=== PATIENT | male | born 1970 | race Caucasian/White ===

== ENCOUNTER 2020-10-01 16:18 | Inpatient (IN) | payer MEDICAID, SELFPAY ==
[~2020-10-01] VITALS: Ht 170.2 cm; Wt 81.6 kg
[2020-10-01 16:28] VITALS: BP 108/74
--- NOTE | 2020-10-01 16:36 | NUR ---
49 Y/O M BIBA FROM HOME WITH DAUGHTER, PT HAD SEIZURE AT HOME WITNESSED BY DAUGHTER. DAUGHTER STATES SHE HEARD A WEIRD NOISE AND SAW HER FATHER ON THE FLOOR HAVING A TONIC CLONIC SEIZURE. NO MOUTH INJURIES, NO HEAD INJURIES, NO FACIAL INJURIES. PT IS NOW C/O SOB. DENIES COUGH, CHEST PAIN, FEVERS. SKIN IS JAUNDICED/CLAMMY/DRY; AAOX4; LUNGS CLEAR BL; HR EVEN AND TACHY; PT DENIES ANY FEVER, CP, OR COUGH AT THIS TIME; PATIENT STATES PAIN OF 0/10 AT THIS TIME; VSS; PATIENT POSITIONED FOR COMFORT; HOB ELEVATED; BEDRAILS UP X2; BED DOWN. ER MD MADE AWARE OF PT STATUS. PMH: MCKAY DAILEY
[2020-10-01] MEDS ORDERED: chlordiazePOXIDE 25 MG CAP PO SCH (16:55)
[2020-10-01] MEDS ORDERED: LORazepam 2 MG/ML VIAL IVP ONE (16:55)
[2020-10-01] MEDS ORDERED: NACL 0.9% 500 ML IV ONE ×2 (16:55→18:40)
[2020-10-01] MEDS ORDERED: LORazepam 2 MG/ML VIAL IVP PRN ×2 (17:00→19:55)
[2020-10-01 17:06] LABS: BASOPHILS % (AUTO) 0.3 % (0.0-2.0); EOSINOPHILS # (AUTO) 0.1 K/uL (0-0.4); EOSINOPHILS % (AUTO) 1.1 % (0.0-4.0); HEMATOCRIT 21.7 % (36-52); LYMPHOCYTES # (AUTO) 1.4 K/uL (2.0-11.5); LYMPHOCYTES % (AUTO) 11.8 % (20.5-51.1); MEAN CORPUSCULAR HEMOGLOBIN 20 pg (27-31); MEAN CORPUSCULAR HGB CONC 29 g/dL (33-37); MEAN CORPUSCULAR VOLUME 68.5 fL (80-94); MONOCYTES # (AUTO) 0.8 K/uL (0.8-1.0); MONOCYTES % (AUTO) 6.9 % (1.7-9.3); NEUTROPHILS # (AUTO) 9.3 K/uL (1.8-7.7); NEUTROPHILS % (AUTO) 79.9 % (42.2-75.2); PLATELET COUNT (AUTO) 131 K/uL (140-450); RED BLOOD CELL COUNT(AUTO) 3.17 MIL/uL (4.20-6.10); WHITE BLOOD COUNT (AUTO) 11.7 K/uL (4.8-10.8)
[2020-10-01 17:08] LABS: HEMOGLOBIN 6.3 g/dL (12.0-18.0)
--- NOTE | 2020-10-01 17:10 | NUR ---
PATIENT TAKEN TO CT VIA TORI
[2020-10-01 17:19] LABS: PROTHROMBIN TIME 20.3 secs (10.8-13.4)
[2020-10-01 17:40] LABS: ALBUMIN 2.5 g/dL (3.4-5.0); ANION GAP 13.6 (8-16); CARBON DIOXIDE 25.8 mmol/L (21-32); CREATININE 0.8 mg/dL (0.6-1.3); POTASSIUM 3.4 mmol/L (3.5-5.1); TOTAL BILIRUBIN 7.4 mg/dL (0.0-1.0)
--- NOTE | 2020-10-01 17:52 | NUR ---
PER BLOOD BANK, PRBCS READY FOR PICK-UP.
[2020-10-01] MEDS ORDERED: PANTOPRAZOLE 40 MG INJ VIAL IVP ONE (18:30)
[2020-10-01] MEDS ORDERED: cefTRIAXone 1,000 MG VIAL ONE (18:32)
[2020-10-01] MEDS ORDERED: DEXT 5% / NACL 0.9% 1,000 ML IV ONE (18:45)
--- NOTE | 2020-10-01 19:30 | NUR ---
REPORT RECEIVED FROM MERY ALEXANDER FOR CONTINUITY OF CARE
[2020-10-01] MEDS ORDERED: ZOLPIDEM 5 MG TAB PO PRN (19:50)
[2020-10-01] MEDS ORDERED: HYDROcodone/APAP 7.5/325 MG 1 TAB PO PRN (19:50)
[2020-10-01] MEDS ORDERED: DOCUSATE SODIUM 100 MG GELCAP PO PRN (19:50)
[2020-10-01] MEDS ORDERED: ACETAMINOPHEN 325 MG TAB PO PRN (19:50)
[2020-10-01] MEDS ORDERED: ONDANSETRON 4 MG/2 ML VIAL IM/IVP PRN (19:50)
[2020-10-01] MEDS ORDERED: guaiFENesin DM 200/20 MG-10 ML 10 ML UDC PO PRN (19:50)
[2020-10-01] MEDS ORDERED: POTASSIUM CHLORIDE 10 MEQ TABER PO PRN (19:50)
[2020-10-01] MEDS ORDERED: MULTIVITAMIN-12 10 ML, THIAMINE 100 MG, FOLIC ACID 1 MG, MAGNESIUM SULFATE 50% 2,000 MG... IV SCH ×5 (19:55)
--- NOTE | 2020-10-01 20:39 | NUR ---
Patient will be admitted to care of DR RODRIGUEZ. Admited to TELEMETRY. Will go to room 111A. Belongings list completed. Report to CRISPIN ALEXANDER.
[2020-10-01 20:45] VITALS: BP_SYST 92; BP_SYST 94; BP_DIAS 60
--- NOTE | 2020-10-01 20:45 | NUR ---
RECEIVED PT AAOX 3 TO 4 , NID - O2 SAT WNL , W/ O2 AT 2LPM/ NC . IV SITES INTACT AND PATENT . ADMISSION ASSESSMENT - DONE . WITH ONGOING BT - NO BT REACTION NOTED AT THIS TIME . NPO EXCEPTS MEDS RE EMPHASIZED . SAFETY MEASURES IN PLACE . POC DISCUSSED VERBALIZE UNDERSTANDING ALTHOUGH NEEDS RE INFORCEMENT DUE TO LACK OF INTEREST.ON TELE MONITOR . WILL CONT. TO MONITOR . DENIES ANY PAIN . Addendum: 10/02/20 at 0845 by Concha Troy RN INFORM DR. JENNIFER JACINTO - NOT GIVEN DUE TO NO PHARMACIST ON DUTY . WILL GIVE BETINA - HE SAID OK . Addendum: 10/02/20 at 0851 by Concha Troy RN RECEIVED PT FROM / [facility] [place] W/ ASSIST TO BED .
[2020-10-01 20:48] LABS: CHOL/HDL RATIO 10.3 (1-4.5); FREE T4 (FREE THYROXINE) 1.42 ng/dL (0.76-1.46); MAGNESIUM 1.5 mg/dL (1.8-2.4); PHOSPHORUS 1.5 mg/dL (2.5-4.9); THYROID STIMULATING HORMONE 5.83 uIU/mL (0.34-3.74)
[2020-10-01] MEDS: chlordiazePOXIDE 25 MG CAP PO SCH (22:15)
[2020-10-01] MEDS: DEXT 5% /NACL 0.9% 1,000 ML IV SCH (22:49)
--- NOTE | 2020-10-01 22:49 | NUR ---
D5 NSS 120CC/HR - ORDERED.
[2020-10-02] VITALS: BP_SYST 102; BP_SYST 97; BP_DIAS 58; BP_DIAS 60
--- NOTE | 2020-10-02 | NUR ---
MADE ROUNDS , NO S/SX OD ACUTE DISTRESS NOTED . NO BT RXN NOTED . AT THIS TIME .
--- NOTE | 2020-10-02 00:15 | NUR ---
SECOND BAG OF PRBC - START - WILL CONT . TO MONITOR .
--- NOTE | 2020-10-02 02:00 | NUR ---
MADE ROUNDS , NO S/SX OF ACUTE DISTRESS NOTED - NO BT RXN NOTED . CALL LIGHT WITHIN REACH .
[2020-10-02 04:00] VITALS: BP 90/60
--- NOTE | 2020-10-02 04:00 | NUR ---
MADE ROUNDS , NOM S/X OF ACUTE DISTRESS NOTED . Addendum: 10/02/20 at 0853 by Concha Troy RN RELAYED TO DR. RODRIGUEZ THE RESULT OF SERUM MAG. AND PHOS - WILL - WAIT THE FURTHER ORDER.
[2020-10-02] MEDS: DEXT 5% /NACL 0.9% 1,000 ML IV SCH ×3 (04:10→20:49)
--- NOTE | 2020-10-02 06:00 | NUR ---
NO COMPLAIN MADE .
[2020-10-02 06:11] LABS: ANION GAP 7.2 (8-16); CARBON DIOXIDE 29.3 mmol/L (21-32); CREATININE 0.7 mg/dL (0.6-1.3); POTASSIUM 3.5 mmol/L (3.5-5.1)
[2020-10-02 06:19] LABS: BASOPHILS % (AUTO) 0.4 % (0.0-2.0); EOSINOPHILS # (AUTO) 0.2 K/uL (0-0.4); EOSINOPHILS % (AUTO) 2.3 % (0.0-4.0); HEMATOCRIT 22.6 % (36-52); LYMPHOCYTES % (AUTO) 22.5 % (20.5-51.1); MEAN CORPUSCULAR HEMOGLOBIN 21 pg (27-31); MEAN CORPUSCULAR HGB CONC 30 g/dL (33-37); MONOCYTES # (AUTO) 0.5 K/uL (0.8-1.0); MONOCYTES % (AUTO) 5.5 % (1.7-9.3); NEUTROPHILS # (AUTO) 6.2 K/uL (1.8-7.7); NEUTROPHILS % (AUTO) 69.3 % (42.2-75.2); RED BLOOD CELL COUNT(AUTO) 3.22 MIL/uL (4.20-6.10); RED CELL DISTRIBUTION WIDTH 25.6 % (11.6-13.7)
[2020-10-02 06:25] LABS: HEMOGLOBIN 6.8 g/dL (12.0-18.0); PLATELET COUNT (AUTO) 108 K/uL (140-450)
--- NOTE | 2020-10-02 07:00 | NUR ---
RELEYED TO DR. RODRIGUEZ RPT HGB . HCT - PER DR. RODRIGUEZ ANOTHER 2 PRBC. -
--- NOTE | 2020-10-02 07:30 | NUR ---
ENDORSED - PT - STABLE .
--- NOTE | 2020-10-02 07:30 | NUR ---
RECEIVED REPORT FROM NIGHT NURSE PATIENT IS AAOX3-4 ON 2LPM OXYGEN VIA NC, NPO EXCEPT MEDS HAD A 1X BOWEL MOVEMENT SKIN INTACT, IV INTACT ON LEFT AC AND RIGHT HAND, S/P 2 UNITS PRBC ON 10/01 20 AND FOR URINE COLLECTION, BANANA BAG UNABLE TO GIVE PER WALLPAPER PRINTER HELPER NURSE DR RODRIGUEZ AWARE. K DUR 40 MEQ GIVEN. SAFETY MEASURES IN PLACE AND CALL LIGHT WITHIN REACH. WILL CONTINUE TO MONITOR.
[2020-10-02 08:00] VITALS: BP 102/67
[2020-10-02] MEDS: FOLIC ACID 1 MG TAB PO SCH (08:26)
[2020-10-02] MEDS: PANTOPRAZOLE 40 MG TABEC PO SCH (08:27)
[2020-10-02] MEDS: MULTIVITAMIN 1 TAB PO SCH (08:27)
[2020-10-02] MEDS: chlordiazePOXIDE 25 MG CAP PO SCH ×3 (08:27→17:25)
[2020-10-02] MEDS: THIAMINE 100 MG TAB PO SCH (08:28)
--- NOTE | 2020-10-02 08:38 | NUR ---
MEDICATION DUE GIVEN PT IS AWAKE CHECK VITAL SIGNS PRIOR TO MEDICATION BP 102/67 IL 88. NO DISTRESS NOTED.WILL CONTINUE TO MONITOR.
--- NOTE | 2020-10-02 08:59 | NUR ---
PATIENT HAS BEEN SCREENED AND CATEGORIZED HIGH NUTRITION RISK. PATIENT WILL BE SEEN WITHIN 1-2 DAYS OF ADMISSION. 10/02/20-10/03/[address]
--- NOTE | 2020-10-02 10:00 | NUR ---
BLOOD TRANSFUSION STARTED CHECK VITAL SIGNS BP 104/67 MN 81 RR 18 TEMP 98.5 OXYGEN SATURATION 99% PT IS STABLE.
--- NOTE | 2020-10-02 10:45 | NUR ---
PATIENT STARTED ON EEG TEST PT IS STABLE AND ON GOING BLOOD TRANSFUSION.
[2020-10-02 12:00] VITALS: BP 107/74
--- NOTE | 2020-10-02 12:15 | NUR ---
PATIENT SIGNED CONSENT FOR EGD DR GRADY EXPLAINED THE PROCEDURE AT THE BEDSIDE AND ABLE TO ANSWER QUESTIONS PATIENT VERBALIZES UNDERSTANDING.
[2020-10-02] MEDS ORDERED: PHYTONADIONE 10 MG/ML AMP IV ONE (12:20)
--- NOTE | 2020-10-02 12:30 | NUR ---
PATIENT OUT IN HIS ROOM FOR EGD UNDER DR GRADY.
--- NOTE | 2020-10-02 12:31 | NUR ---
SOCIAL WORK NOTE: Patient's Orientation Unable To Assess Information Provided By LYLE ANDREW - DAUGHTER Comments SW WAS UNABLE TO MEET PATIENT AT BEDSIDE. SW COMPLETED ASSESSMENT WITH PATIENT'S DAUGHTER. Tree Thinner, Realtionship and Phone Number LYLE ANDREW DAUGHTER [phone] [facility] [place] Power of Computer Software Engineer No Does Patient Have a POLST No Identifying Problems No Social Work Triggers Is A Social Work Consult Needed No Mandate Report Filed No Explanation Of Identifying Problems PATIENT IS A 49-YEAR-OLD MALE ADMITTED FOR ALCOHOL WITHDRAWAL AND SEIZURE. PATIENT HAS PMHX OF ALCOHOL ABUSE. SW PROVIDED SUBSTANCE ABUSE RESOURCES. Admitted From Home Pre-Admission Level Of Functioning Status Independent/Ambulatory Prior Resources/Services Used In Last 12 Months No Prior Resources Used Prior DME No Prior DME Used Dialysis Comments N/A Living Situation Lives With Family House Patient Had Caregiver No Home Support No Caregiver Issues Financial Issues No Known Financial Issue Referral To The Financial Counselor Needed No Discharge Plan Comments TENTATIVE DISCHARGE PLAN IS FOR PATIENT TO RETURN HOME. DC Plan Status Initiated
[2020-10-02] MEDS ORDERED: diphenhydrAMINE 50 MG/ML VIAL ONE (12:44)
[2020-10-02] MEDS ORDERED: MIDAZOLAM 5 MG/5 ML VIAL ONE (12:44)
[2020-10-02] MEDS ORDERED: fentaNYL citrate 0.05 MG/ML VIAL ONE (12:44)
[2020-10-02] MEDS ORDERED: OCTREOTIDE ACETATE 100 MCG/ML VIAL SUBQ SCH (13:00)
[2020-10-02] MEDS ORDERED: PHYTONADIONE 10 MG in NACL 0.9% 50 ML IV SCH (13:00)
--- NOTE | 2020-10-02 13:00 | NUR ---
PATIENT BACK IN HIS ROOM PT S/P EGD PT IS STABLE.
--- NOTE | 2020-10-02 13:25 | NUR ---
BLOOD TRANSFUSION COMPLETE NO TRANSFUSION REACTION BP 107/74 NH 86. PT IS STABLE
--- NOTE | 2020-10-02 13:39 | NUR ---
DC PLANNIN YRS OLD MALE PATIENT WAS ADMITTED FROM HOME WITH A DX OF ALCOHOL WITHDRAWAL , SEIZURES ANEMIA GI BLEED AND NEW ONSET OF CIRRHOSIS. PT HAS A HX OF ALCOHOL ABUSE AND GI BLEED. CXR SHOWED MILD PATCHY BIBASAL OPACITIES WHICH MAY REPRESENT ATELECTASIS OR PNEUMONIA . HEAD CT NO ACUTE INTRACRANIAL HEMORRHAGE , MASS EFFECT. RAPID COVID TEST NEGATIVE PCR IS PENDING. H/H 6.8/22.6 AFTER TRANSFUSED OF 2 UNITS PRBC. ADMINISTERED IVF, BANANA BAG AND CONTINUED HOME MEDS. CONSULTED WITH NEUROLOGIST AND GI. SS TO EVALUATE FOR ALCOHOL ABUSE. DC PLAN TO GO HOME WHEN STABLE. CM TO FOLLOW.
[2020-10-02] MEDS ORDERED: MIDAZOLAM 2 MG/2 ML VIAL IVP ONE (13:50)
[2020-10-02] MEDS ORDERED: fentaNYL citrate 0.05 MG/ML VIAL IVP ONE (13:50)
--- NOTE | 2020-10-02 14:27 | NUR ---
10/02/20 RD INITIAL ASSESSMENT COMPLETED PLEASE REFER TO NUTRITION ASSESSMENT UNDER CARE ACTIVITY FOR ESTIMATED NUTRITIONAL NEEDS. 1. CONTINUE FULL LIQUID DIET TOLERATED 2. ADVANCE TO REGULAR DIET 3. RD TO FOLLOW-UP 3-5 DAYS, MODERATE RISK SARAH NAYLOR RD
--- NOTE | 2020-10-02 15:00 | NUR ---
MEDICATION DUE GIVEN PT COMPLAINS OF ABDOMINAL PAIN PAIN MEDICATION GIVEN
[2020-10-02] MEDS: SODIUM FERRIC GLUCONATE 125 MG in NACL 0.9% 100 ML IV SCH (15:11)
[2020-10-02 16:00] VITALS: BP 108/70
--- NOTE | 2020-10-02 17:28 | NUR ---
MEDICATION DUE GIVEN AND PATIENT HAD NO URINE OUT PUT FOR THE SHIFT AND NO DIARRHEA NOTED.
--- NOTE | 2020-10-02 19:41 | NUR ---
ENDORSED TO CARPENTRY SUPERVISOR FOR CONTINUITY OF CARE. PT STABLE
[2020-10-02 20:00] VITALS: BP 100/71
--- NOTE | 2020-10-02 20:00 | NUR ---
RECEIVED BEDSIDE REPORT FROM DAY RN REGARDING THE PT FOR CONTINUITY OF CARE. PATIENT A/A/OX3, FORGETFUL AT TIMES. PT LAYING IN BED TALKING TO HIS FAMILY OVER THE PHONE WHO ARE STANDING BY THE WINDOW. PT NOT ANY DISTRESS AND NO COMPLAIN AT THIS TIME. IVF INFUSING ORDERED. VITAL SIGNS STABLE, AFEBRILE, SATING 93% ON 2L/NC. SR ON DATABASE CONSULTANT, HR-93. FALL PRECAUTION IMPLEMENTED. INSTRUCTED THE PT NOT TO GET OUT OF [place] ON HIS OWN AND EDUCATED ON HOW TO USE THE CALL LIGHT. BED IN LOW POSITION,SIDE RAILS UP X2 AND BED ALARM ON. PT VERBALIZED UNDERSTANDING WITH THE PLAN OF CARE.CALL LIGHT WITHIN REACH. WILL CONTINUE MONITORING AND POC.
[2020-10-02] MEDS: LACTULOSE 20 GM/30 ML UDC PO SCH (20:46)
--- NOTE | 2020-10-02 22:45 | NUR ---
STARTED THE 2ND UNIT OF BLOOD ORDERED. WILL MONITOR THE PATIENT FOR ANY TRANSFUSION REACTION. CALL LIGHT WITHIN REACH.
--- NOTE | 2020-10-02 23:45 | NUR ---
BLOOD TRANSFUSION STILL ONGOING. NO COMPLAIN FROM THE PATIENT AT THIS TIME AFTER 1 HOUR OF TRANSFUSION. WILL CONTINUE TO OBSERVE.
[2020-10-03] VITALS: BP 107/77
--- NOTE | 2020-10-03 02:05 | NUR ---
BLOOD TRANSFUSION DONE. NO TRANSFUSION REACTION NOTED. NO COMPLAIN FROM THE PATIENT. VSS, AFEBRILE, SATING 95% ON 2L/NC. CALL LIGHT WITHIN REACH.
--- NOTE | 2020-10-03 03:29 | NUR ---
PATIENT HAS 2 WATERY DIARRHEA NOW. NO BLOOD NOTED ON THE STOOL. WILL CONTINUE TO OBSERVE.
[2020-10-03 04:00] VITALS: BP 110/77
--- NOTE | 2020-10-03 04:30 | NUR ---
PATIENT VSS, AFEBRILE, SATING 95% ON 2L/NC . SR ON PROJECT GEOLOGIST, HR-81. WILL CONTINUE TO OBSERVE.
[2020-10-03] MEDS: DEXT 5% /NACL 0.9% 1,000 ML IV SCH ×2 (05:10→14:35)
[2020-10-03 06:36] LABS: BASOPHILS # (AUTO) 0.1 K/uL (0.00-0.22); BASOPHILS % (AUTO) 0.6 % (0.0-2.0); EOSINOPHILS # (AUTO) 0.3 K/uL (0-0.4); EOSINOPHILS % (AUTO) 3.5 % (0.0-4.0); HEMATOCRIT 28.8 % (36-52); LYMPHOCYTES # (AUTO) 1.1 K/uL (2.0-11.5); LYMPHOCYTES % (AUTO) 11.5 % (20.5-51.1); MEAN CORPUSCULAR HEMOGLOBIN 23 pg (27-31); MEAN CORPUSCULAR HGB CONC 31 g/dL (33-37); MEAN CORPUSCULAR VOLUME 75.1 fL (80-94); MONOCYTES # (AUTO) 0.8 K/uL (0.8-1.0); MONOCYTES % (AUTO) 7.9 % (1.7-9.3); NEUTROPHILS # (AUTO) 7.3 K/uL (1.8-7.7); NEUTROPHILS % (AUTO) 76.5 % (42.2-75.2); PLATELET COUNT (AUTO) 109 K/uL (140-450); RED BLOOD CELL COUNT(AUTO) 3.84 MIL/uL (4.20-6.10); RED CELL DISTRIBUTION WIDTH 25.6 % (11.6-13.7); WHITE BLOOD COUNT (AUTO) 9.5 K/uL (4.8-10.8)
--- NOTE | 2020-10-03 06:55 | NUR ---
PATIENT STABLE AT THIS TIME. NOT IN ANY DISTRESS. NO COMPLAIN AT THIS TIME. ALL NEEDS ATTENDED. CALL LIGHT WITHIN REACH. WILL ENDORSE THE PATIENT TO THE ONCOMING RN FOR CONTINUITY OF CARE.
[2020-10-03 07:01] LABS: ANION GAP 7.9 (8-16); CARBON DIOXIDE 28.7 mmol/L (21-32); CREATININE 0.7 mg/dL (0.6-1.3); POTASSIUM 3.6 mmol/L (3.5-5.1)
[2020-10-03 07:08] LABS: T4 (THYROXINE) 5.9 ug/dL (4.5-12.0)
--- NOTE | 2020-10-03 07:15 | NUR ---
PT RECEIVED FROM SHIP PILOT RN. PT RESTING IN BED EYES CLOSED NO S/S OF DISTRESS. IV IS DRY CLEAN AND INTACT. CALL LIGHT IS WITHIN REACH ALL SAFETY MEASURES ARE IN PLACE.
--- NOTE | 2020-10-03 07:36 | NUR ---
PATIENT STABLE. ENDORSED PATIENT TO DAY RN HERMINIA FOR CONTINUITY OF CARE. SIGNING OFF.
[2020-10-03 08:00] VITALS: BP 103/71
[2020-10-03] MEDS: LACTULOSE 20 GM/30 ML UDC PO SCH (09:15)
[2020-10-03] MEDS: MULTIVITAMIN 1 TAB PO SCH (09:15)
[2020-10-03] MEDS: chlordiazePOXIDE 25 MG CAP PO SCH ×3 (09:16→17:38)
[2020-10-03] MEDS: FOLIC ACID 1 MG TAB PO SCH (09:16)
[2020-10-03] MEDS: THIAMINE 100 MG TAB PO SCH (09:16)
[2020-10-03] MEDS: PANTOPRAZOLE 40 MG TABEC PO SCH (09:16)
--- NOTE | 2020-10-03 09:19 | NUR ---
MEDICATIONS GIVEN PER MD ORDER. PT EDUCATED. PT VERBALIZED UNDERSTANDING.PT TOLERATED WELL. NO S/S OF DISTRESS. PT RESTING IN BED. ABLE TO MAKE NEEDS KNOWN. ALL SAFETY MEASURES IN PLACE. CALL LIGHT WITHIN REACH
--- NOTE | 2020-10-03 09:59 | NUR ---
FRENCH BINDER AT BEDSIDE.
--- NOTE | 2020-10-03 11:22 | NUR ---
PT AMBULATED TO RESTROOM. YELLOW CONTINUOUS DIARRHEA. PT UNABLE TO HOLD UNTIL GETTING TO TOILET. PT TOLERATED WELL. BATH WIPES NEW GOWN , NEW LINEN PROVIDED.
--- NOTE | 2020-10-03 11:51 | NUR ---
PT ASSISTED WITH PHONE. PT TALKING TO DAUGHTER. PT IN BED NO S/S OF DISTRESS.. IV IS DRY CLEAN AND INTACT. CALL LIGHT IS WITHIN REACH ALL SAFETY MEASURES ARE IN PLACE.
--- NOTE | 2020-10-03 12:42 | NUR ---
MEDICATIONS GIVEN PER MD ORDER. PT EDUCATED. PT VERBALIZED UNDERSTANDING.PT TOLERATED WELL. NO S/S OF DISTRESS. FRANKLIN;L LIGHT IS WITHIN REACH.
--- NOTE | 2020-10-03 12:42 | NUR ---
PT AMBULATING TO INDEPENDENTLY . PT TOLERATED WELL. TOOTHBRUSH AND TOOTHPASTE PROVIDED.
--- NOTE | 2020-10-03 12:48 | NUR ---
PT PROVIDED NON SLIP SOCKS, EDUCATED ON IMPORTANCE OF NOT WALKING BAREFOOT. VERBALIZED UNDERSTANDING
--- NOTE | 2020-10-03 14:38 | NUR ---
PT IN BED ON SIDE. EYES CLOSED. EASY TO AROUSE. MEDICATIONS GIVEN PER MD ORDER. PT EDUCATED. PT VERBALIZED UNDERSTANDING.PT TOLERATED WELL. NO S/S OF DISTRESS.
[2020-10-03] MEDS: SODIUM FERRIC GLUCONATE 125 MG in NACL 0.9% 100 ML IV SCH (14:39)
[2020-10-03 16:00] VITALS: BP 101/70
--- NOTE | 2020-10-03 16:34 | NUR ---
PT RESTING IN BED EYES CLOSED. EASY TO AROUSE. THEN APPLE JUICE PROVIDED PER PT REQUEST. NO S/S OF DISTRESS. ALL SAFETY MEASURES ARE IN PLACE. PT WENT BACK TO SLEEP , BREATHING IS SYMMETRICAL UNLABORED AND NO USE OF ACCESSORY MUSCLES.
--- NOTE | 2020-10-03 17:35 | NUR ---
MEDICATIONS GIVEN PER MD ORDER. PT EDUCATED. PT VERBALIZED UNDERSTANDING.PT TOLERATED WELL. NO S/S OF DISTRESS. ALL SAFETY MEASURES ARE IN PLACE.
--- NOTE | 2020-10-03 19:25 | NUR ---
PT ENDORSED TO PHYSICIAN PRACTICE COORDINATOR RN FOR CONTINUITY OF CARE.
--- NOTE | 2020-10-03 19:26 | NUR ---
RECEIVED REPORT FROM KATHI HOPE. PT AOX4 ON 2L N/C. RESPIRATIONS EVEN UNLABORED. NO S/S RESPIRATORY DISTRESS. NO C/O PAIN AT THIS TIME. IV SITE LFA PATENT INTACT INFUSING IVF ORDERED. SAFETY MEASURES IN PLACE. CALL LIGHT WITHIN REACH. WILL CONTINUE TO MONITOR
[2020-10-03 20:00] VITALS: BP 104/70
--- NOTE | 2020-10-03 20:30 | NUR ---
PATIENT RESTING IN BED. DENIES DISCOMFORT, DENIES PAIN. NO S/S ACUTE DISTRESS NOTED. BED IN LOW POSITION. CALL LIGHT WITHIN REACH. WILL CONTINUE TO MONITOR
--- NOTE | 2020-10-03 22:45 | NUR ---
PATIENT RESTING IN BED. RESPIRATIONS EVEN UNLABORED. NO DISTRESS NOTED. CALL LIGHT WITHIN REACH. WILL CONTINUE TO MONITOR
--- NOTE | 2020-10-04 01:30 | NUR ---
PATIENT ASLEEP IN BED. NO S/S ACUTE DISTRESS NOTED. CALL LIGHT WITHIN REACH. WILL CONTINUE TO MONITOR
[2020-10-04] MEDS: DEXT 5% /NACL 0.9% 1,000 ML IV SCH (02:43)
--- NOTE | 2020-10-04 02:43 | NUR ---
ADMINISTERED IVF ORDERED. PATIENT DENIES PAIN, DENIES DISCOMFORT. NO DISTRESS NOTED. CALL LIGHT WITHIN REACH. WILL CONTINUE TO MONITOR
[2020-10-04 04:00] VITALS: BP 102/70
[2020-10-04 06:38] LABS: BASOPHILS # (AUTO) 0.1 K/uL (0.00-0.22); BASOPHILS % (AUTO) 0.8 % (0.0-2.0); EOSINOPHILS # (AUTO) 0.3 K/uL (0-0.4); HEMATOCRIT 27.9 % (36-52); HEMOGLOBIN 8.8 g/dL (12.0-18.0); LYMPHOCYTES # (AUTO) 0.6 K/uL (2.0-11.5); LYMPHOCYTES % (AUTO) 6.5 % (20.5-51.1); MEAN CORPUSCULAR HEMOGLOBIN 24 pg (27-31); MEAN CORPUSCULAR HGB CONC 32 g/dL (33-37); MEAN CORPUSCULAR VOLUME 74.8 fL (80-94); MONOCYTES % (AUTO) 11.8 % (1.7-9.3); NEUTROPHILS # (AUTO) 6.7 K/uL (1.8-7.7); NEUTROPHILS % (AUTO) 77.9 % (42.2-75.2); PLATELET COUNT (AUTO) 99 K/uL (140-450); RED BLOOD CELL COUNT(AUTO) 3.73 MIL/uL (4.20-6.10); RED CELL DISTRIBUTION WIDTH 26.5 % (11.6-13.7); WHITE BLOOD COUNT (AUTO) 8.6 K/uL (4.8-10.8)
[2020-10-04 07:24] LABS: ANION GAP 7.2 (8-16); CREATININE 0.7 mg/dL (0.6-1.3); POTASSIUM 3.2 mmol/L (3.5-5.1)
--- NOTE | 2020-10-04 07:39 | NUR ---
ENDORSED PATIENT TO DAY RN FOR CONTINUITY OF CARE. PATIENT IS IN STABLE CONDITION
--- NOTE | 2020-10-04 07:39 | NUR ---
NURSE REPORT REPORT OBTAINED FROM NIGHT NURSE ADDIE THIS NURSE ASSUMED CARE OF PATIENT. RECEIVED PATIENT AWAKE AT BEGINNING OF DAYSHIFT. NO C/O PAIN OR DISCOMFORT. IV INFUSING ORDERED. VSS.
[2020-10-04 08:00] VITALS: BP 108/73
[2020-10-04] MEDS ORDERED: LACTULOSE 20 GM/30 ML UDC PO SCH (09:00)
[2020-10-04] MEDS: chlordiazePOXIDE 25 MG CAP PO SCH (09:52)
[2020-10-04] MEDS: PANTOPRAZOLE 40 MG TABEC PO SCH (09:52)
[2020-10-04] MEDS: MULTIVITAMIN 1 TAB PO SCH (09:53)
[2020-10-04] MEDS: THIAMINE 100 MG TAB PO SCH (09:53)
[2020-10-04] MEDS: FOLIC ACID 1 MG TAB PO SCH (09:53)
[2020-10-04] MEDS ORDERED: LACT10SO11 PO (12:04)
[2020-10-04] MEDS ORDERED: FOLI1TAB90 PO (12:04)
[2020-10-04] MEDS ORDERED: THIA-34 PO (12:04)
[2020-10-04] MEDS ORDERED: LIB25 PO (12:16)
--- NOTE | 2020-10-04 13:00 | NUR ---
NURSE CARE MEDICATIONS GIVEN ORDERED. NO C/O PAIN OR DISCOMFORT. HAD 4-5 STOOLS DURING THE DAYSHIFT. LACTULOSE REFUSED.
[2020-10-04 16:00] VITALS: BP 105/76
[2020-10-04 16:47] VITALS: BP 105/76
--- NOTE | 2020-10-04 17:30 | NUR ---
DISCHARGE INSTRUCTIONS D/C INSTRUCTIONS GIVEN TO PATIENT AND THEN TO FAMILY. VERBALIZED UNDERSTANDINGS. MITRA DC'D. DC'D VIA W/C AND OUT TO CAR WITH AND DAUGHTER. RX FOR LIBRIUM GIVEN TO TO OBTAIN MED FROM PHARMACY.
== END 2020-10-04 17:24 | disposition home or self-care (01) | DRG 242 ==
LOC: MED 16:18 → MTU 18:46
PROVIDERS: ADMIT Family Medicine; ATTEND Family Medicine
PROC: 30233N1 Transfusion of Nonautologous Red Blood Cells into Peripheral Vein, Percutaneous Approach (ICD-10-PCS; 2020-10-01)
PROC: 4A10X4Z Monitoring of Central Nervous Electrical Activity, External Approach (ICD-10-PCS; 2020-10-02)
PROC: 06L38CZ Occlusion of Esophageal Vein with Extraluminal Device, Via Natural or Artificial Opening Endoscopic (ICD-10-PCS; principal; 2020-10-02 12:15)
DX: I85.11 Secondary esophageal varices with bleeding (principal); J96.01 Acute respiratory failure with hypoxia; E43 Unspecified severe protein-calorie malnutrition; F10.231 Alcohol dependence with withdrawal delirium; D69.6 Thrombocytopenia, unspecified; E87.2 Acidosis; E83.39 Other disorders of phosphorus metabolism; E83.42 Hypomagnesemia; K74.60 Unspecified cirrhosis of liver; G40.909 Epilepsy, unspecified, not intractable, without status epilepticus; E87.1 Hypo-osmolality and hyponatremia; E87.6 Hypokalemia; R74.01 Elevation of levels of liver transaminase levels; E78.5 Hyperlipidemia, unspecified; E03.8 Other specified hypothyroidism; D50.9 Iron deficiency anemia, unspecified; Z20.822 Contact with and (suspected) exposure to COVID-19; Z87.11 Personal history of peptic ulcer disease; Z68.28 Body mass index [BMI] 28.0-28.9, adult
CPT/HCPCS: 36415; 36430; 70450; 71045; 76700; 80048; 80053; 82140; 82150; 83036; 83605; 83690; 83735; 83880; 84100; 84436; 84439; 84443; 84479; 84484; 85025; 85610; 86886; 86900; 86901; 86920; 87040; 87081; 93005; 96361; 96365; 96375; 99291; A9153; C9113; G0482; J0696; J1200; J2060; J2250; J2354; J2916; J3010; J3411; J3430; J3475; J3490; J7030; J7060; P9016; U0003

== ENCOUNTER 2020-10-05 20:06 | Inpatient (IN) | payer MEDICAID, SELFPAY ==
[~2020-10-05] VITALS: Ht 170.2 cm; Wt 80.7 kg
--- NOTE | 2020-10-05 19:15 | NUR ---
RECEIVED REPORT FROM DAY CHARGE NURSE CLARE. PATIENT DIRECT ADMIT FROM [facility]. PATIENT AOX4 ON ROOM AIR. CC: BLOODY STOOLS DX: GI BLEED HX: ALCOHOL WITHDRAWAL, ABD DISTENTION, HEMORRHOIDS. IV SITE RAC 20G, JAUNDICED, ECCHYMOSIS ON ARMS. AMBULATORY WITH ASSIST. LATEST VS: BP 112/87 TEMP 97.7 HR 95 RR 20 O2 SAT 93-96%. LIBRIUM GIVEN AT 1900 10/05/20. WILL GET THE ROOM READY
[2020-10-05 19:45] VITALS: BP 97/72
--- NOTE | 2020-10-05 19:45 | NUR ---
PATIENT ARRIVED TO UNIT. AOX4 ON ROOM AIR. DENIES SOB, DENIES PAIN. NO S/S RESPIRATORY DISTRESS. IV SITE RAC 20G PATENT INTACT, S.L. BRUISES ON RIGHT HAND, SKIN WARM DRY INTACT, JAUNDICE. BOWELS ACTIVE. LUNGS CLEAR. ORIENTED TO ROOM AND HOSPITAL. SAFETY MEASURES IN PLACE. CALL LIGHT WITHIN REACH. WILL CONTINUE TO MONITOR
[~2020-10-05 20:06] MED LIST: FOLI1TAB90 PO; LACT10SO11 PO; LIB25 PO; THIA-34 PO
--- NOTE | 2020-10-05 20:45 | NUR ---
CALLED RAHEEM SUBRAMANIAN. UPDATED ON PATIENT STATUS. NEW ORDERS RECEIVED. WILL CARRY OUT.
--- NOTE | 2020-10-05 20:50 | NUR ---
PLACED PATIENT ON TELE. NO DISTRESS NOTED. NO C/O PAIN AT THIS TIME. CALL LIGHT WITHIN REACH. WILL CONTINUE TO MONITOR
[2020-10-05] MEDS ORDERED: ONDANSETRON 4 MG/2 ML VIAL IVP PRN (21:00)
--- NOTE | 2020-10-05 22:15 | NUR ---
CLEANED CHANGED REPOSITIONED PATIENT. HAD SMALL BLOODY SMEAR BOWEL MOVEMENT. NO S/S ACUTE DISTRESS NOTED. CALL LIGHT WITHIN REACH. WILL CONTINUE TO MONITOR
[2020-10-05] MEDS ORDERED: ONDANSETRON 4 MG/2 ML VIAL IM/IVP PRN (23:15)
[2020-10-05] MEDS ORDERED: MAG SULF 2000 MG/WATER PREMIX 50 ML IV PRN (23:15)
[2020-10-05] MEDS ORDERED: DOCUSATE SODIUM 100 MG GELCAP PO PRN (23:15)
[2020-10-05] MEDS ORDERED: SODIUM PHOS / POTASSIUM PHOS 1 PKT PDR PO PRN (23:15)
[2020-10-05] MEDS ORDERED: KETOROLAC 15 MG/ML VIAL IVP PRN (23:15)
[2020-10-05] MEDS ORDERED: MORPHINE SULFATE 2 MG/ML SYR IVP PRN (23:15)
[2020-10-05] MEDS ORDERED: POTASSIUM CHLORIDE 40 MEQ, LIDOCAINE MPF 1% 25 MG in NACL 0.9% 250 ML IV PRN (23:15)
[2020-10-06] VITALS: BP 97/68
--- NOTE | 2020-10-06 00:15 | NUR ---
PATIENT ASLEEP IN BED. RESPIRATIONS EVEN UNLABORED. NO DISTRESS NOTED. CALL LIGHT WITHIN REACH. WILL CONTINUE TO MONITOR
--- NOTE | 2020-10-06 02:03 | NUR ---
PATIENT SLEEPING IN BED COMFORTABLY. NO S/S RESPIRATORY DISTRESS. CALL LIGHT WITHIN REACH. WILL CONTINUE TO MONITOR
[2020-10-06 04:00] VITALS: BP 105/70
--- NOTE | 2020-10-06 04:12 | NUR ---
PATIENT SLEEPING IN BED. NO S/S RESPIRATORY DISTRESS. CALL LIGHT WITHIN REACH. WILL CONTINUE TO MONITOR
--- NOTE | 2020-10-06 06:06 | NUR ---
PATIENT RESTING IN BED. DENIES DISCOMFORT, DENIES PAIN. NO S/S ACUTE DISTRESS NOTED. CALL LIGHT WITHIN REACH. WILL CONTINUE TO MONITOR
[2020-10-06 06:34] LABS: ANION GAP 10.9 (8-16); CARBON DIOXIDE 25.8 mmol/L (21-32); CREATININE 0.7 mg/dL (0.6-1.3); POTASSIUM 3.7 mmol/L (3.5-5.1)
[2020-10-06 06:47] LABS: BASOPHILS # (AUTO) 0.1 K/uL (0.00-0.22); BASOPHILS % (AUTO) 1.1 % (0.0-2.0); EOSINOPHILS # (AUTO) 0.2 K/uL (0-0.4); HEMATOCRIT 29.8 % (36-52); HEMOGLOBIN 9.2 g/dL (12.0-18.0); LYMPHOCYTES # (AUTO) 1.5 K/uL (2.0-11.5); LYMPHOCYTES % (AUTO) 19.3 % (20.5-51.1); MEAN CORPUSCULAR HEMOGLOBIN 24 pg (27-31); MEAN CORPUSCULAR HGB CONC 31 g/dL (33-37); MEAN CORPUSCULAR VOLUME 77.5 fL (80-94); MONOCYTES % (AUTO) 12.2 % (1.7-9.3); NEUTROPHILS # (AUTO) 5.1 K/uL (1.8-7.7); NEUTROPHILS % (AUTO) 65.4 % (42.2-75.2); RED BLOOD CELL COUNT(AUTO) 3.85 MIL/uL (4.20-6.10); WHITE BLOOD COUNT (AUTO) 7.8 K/uL (4.8-10.8)
[2020-10-06 06:56] LABS: PLATELET COUNT (AUTO) 115 K/uL (140-450)
--- NOTE | 2020-10-06 07:23 | NUR ---
ENDORSED PATIENT TO DAY RN FOR CONTINUITY OF CARE. PATIENT IS IN STABLE CONDITION
--- NOTE | 2020-10-06 07:30 | NUR ---
PT REPORT RECEIVED FROM WELDING MACHINE OPERATOR HELPER ARC RN. PT RESTING IN BED EYES CLOSED. EASY TO AROUSE. NO S/S OF DISTRESS AT THIS TIME. PT ABLE TO MAKE NEEDS KNOWN ALL SAFETY MEASURES ARE IN PLACE. CALL LIGHT IS WITHIN REACH
[2020-10-06 08:00] VITALS: BP 139/69
--- NOTE | 2020-10-06 10:07 | NUR ---
PATIENT HAS BEEN SCREENED AND CATEGORIZED HIGH NUTRITION RISK. PATIENT WILL BE SEEN WITHIN 1-2 DAYS OF ADMISSION. 10/06/20-10/07/20 REFERRAL RECEIVED FOR DIARRHEA >[address]
--- NOTE | 2020-10-06 10:09 | NUR ---
PT COMPLAINS OF WEAKNESS, AND INABILITY TO WALK BECAUSE OF PAIN. PRN WILL BE GIVEN PER MD ORDER.
[2020-10-06 12:00] VITALS: BP 101/75
--- NOTE | 2020-10-06 12:15 | NUR ---
MD AT BEDSIDE EDUCATING PT REGARDING BOWEL PRE, AND COLONOSCOPY PROCEDURE. PT VERBALIZED UNDERSTANDING.
[2020-10-06] MEDS: PROPRANOLOL 20 MG TAB PO SCH ×2 (13:00→17:01)
--- NOTE | 2020-10-06 13:20 | NUR ---
REPORT GIVEN TO ALVERTO BECKMAN RN VERBALIZED UNDERSTANDING FOR CONTINUITY OF CARE. Addendum: 10/06/20 at 1354 by Celia Maurice RN RN MARYLOU PT.
--- NOTE | 2020-10-06 13:42 | NUR ---
PT IN BED RESTING EATING PUDDING. Addendum: 10/06/20 at 1355 by Celia Maurice RN RN WRONG PT
[2020-10-06] MEDS: POLYETHYLENE GLYCOL 17 GM/PKT PO SCH ×2 (13:50→16:59)
[2020-10-06] MEDS: LACTULOSE 20 GM/30 ML UDC PO SCH ×3 (13:50→21:05)
--- NOTE | 2020-10-06 13:54 | NUR ---
MEDICATION GIVEN PER MD ORDER. PT EDUCATED AND VERBALIZED UNDERSTANDING. PT ABLE TO MAKE NEEDS KNOWN. DENIES PAIN AT THIS TIME. NO S/S OF DISTRESS. CALL LIGHT IS WITHIN REACH. ALL SAFETY MEASURES ARE IN PLACE.
--- NOTE | 2020-10-06 13:55 | NUR ---
PT EDUCATED REGARDING CLD. PT VERBALIZED UNDERSTANDING.
[2020-10-06] MEDS: PANTOPRAZOLE 40 MG INJ VIAL IVP SCH (14:36)
--- NOTE | 2020-10-06 14:40 | NUR ---
MEDICATIONS GIVEN PER MD ORDER. PT EDUCATED AND VERBALIZED UNDERSTANDING. NO S/S OF DISTRESS AT THIS TIME.
--- NOTE | 2020-10-06 15:55 | NUR ---
PT FEELING SHAKY IN THE UPPER BODY. PT LAID DOWN FOR COMFORT. SHAKING STOPPED. PT CLAIMS HE FEELS BETTER.
[2020-10-06 16:00] VITALS: BP 116/59
--- NOTE | 2020-10-06 16:14 | NUR ---
PT REASSESSED. PT RESTING IN BED COMFORTABLY NO S/S OF DISTRESS. EYES CLOSED. BREATHING IS SYMMETRICAL AND UNLABORED. OT RESTING COMFORTABLY CALL LIGHT IS WITHIN REACH ALL SAFETY MEASURES ARE IN PLACE.
--- NOTE | 2020-10-06 17:04 | NUR ---
MEDICATIONS GIVEN PER MD ORDER. PT EDUCATED AND VERBALIZED UNDERSTANDING. NO S/S OF DISTRESS AT THIS TIME. PT TAKEN OF TELEMETRY PER MD ORDER. POT EDUCATED AND VERBALIZED UNDERSTANDING. PT SITTING ON EDGE OF BED. DENIES ANY PAIN AT THIS TIME.
--- NOTE | 2020-10-06 17:07 | NUR ---
PT HAD 2 LARGE BOWEL MOVEMENTS LOSE AND HARD STOOL AT THIS TIME. CONOR. Addendum: 10/06/20 at 1707 by Celia Maurice RN RN DENIES ANY BLEEDING
--- NOTE | 2020-10-06 18:25 | NUR ---
PT ASSISTED WITH MEAL SET UP. PT DENIES PAIN AT THIS TIME. CALL LIGHT IS WITHIN REACH ALL SAFETY MEASURES ARE IN PLACE.
--- NOTE | 2020-10-06 19:21 | NUR ---
PT ENDORSED TO HELP DESK AGENT RN. PT IS STABLE ABLE TO MAKE NEEDS KNOWN. RN VERBALIZED UNDERSTANDING FOR CONTINUITY OF CARE.
--- NOTE | 2020-10-06 19:21 | NUR ---
RECEIVED PT AWAKE , CONFUSE - MOSTLY WITH REGARDS TO DATE AND TIME - HX LIVER CIRRHOSIS , ALCOHOL ABUSE , NID - O2 SAT WNL - RA , DENIES ANY PAIN . NO S/SX OF BLEEDING NOTED AT THIS TIME . FOR COLONOSCOPY BETINA. NPO EXCEPT .MEDS . IV SITE INTACT AND PATENT . SAFETY MEASURES IN PLACE - SZ PRECAUTION PROTOCOL . PLAN OF CARE DISCUSSED BUT NEEDS RE INFORCEMENT MOST OF THE TIME DUE TO MENTAL STATUS . WILL CONT. TO MONITOR .
[2020-10-06 20:00] VITALS: BP 114/76
[2020-10-06] MEDS ORDERED: MAGNESIUM CITRATE 300 ML BTL PO SCH (20:00)
[2020-10-06] MEDS: POTASSIUM CHLORIDE 20% 40 MEQ/15 ML UDC GT SCH (21:06)
--- NOTE | 2020-10-07 | NUR ---
MADE ROUNDS , NO S/.SX OF ACUTE DISTRESS NOTED . CALL LIGHT/ URINAL WITHIN REACH . WILL CONT. TO MONITOR . Addendum: 10/07/20 at 0218 by Concha Troy RN BP RE CHECK - 100/72 - WILL CONT. TO MONITOR .
--- NOTE | 2020-10-07 02:00 | NUR ---
SLEEPING - CHEST RISE AND FALL EQUALLY . WILL CONT. TO MONITOR .
[2020-10-07 04:00] VITALS: BP 109/71
--- NOTE | 2020-10-07 05:25 | NUR ---
EKG PERFORMED W/ ABNORM RESULTS. THE ABNORM RESULTS WAS REPORTED TO RN AND SHE WAS PROVIDED A COPY OF ABNORM EKG. A COPY WAS ALSO PLACED IN PT CHART ALONG WITH RHYTHM STRIP.
--- NOTE | 2020-10-07 06:00 | NUR ---
SLEEPING , AWAKEABLE , NO S/SX OF ACUTE DISTRESS NOTED . DENIES ANY PAIN . WILL UPDATE DR. LLANES ABOUT THE EKG RESULT . WILL CONT. TO MONITOR .
[2020-10-07 06:08] LABS: PROTHROMBIN TIME 15.3 secs (10.8-13.4)
[2020-10-07 06:11] LABS: HEMATOCRIT 30.9 % (36-52); HEMOGLOBIN 9.7 g/dL (12.0-18.0); MEAN CORPUSCULAR HEMOGLOBIN 24 pg (27-31); MEAN CORPUSCULAR HGB CONC 31 g/dL (33-37); MEAN CORPUSCULAR VOLUME 77.9 fL (80-94); PLATELET COUNT (AUTO) 126 K/uL (140-450); RED BLOOD CELL COUNT(AUTO) 3.97 MIL/uL (4.20-6.10); RED CELL DISTRIBUTION WIDTH 32.4 % (11.6-13.7); WHITE BLOOD COUNT (AUTO) 8.8 K/uL (4.8-10.8)
[2020-10-07 06:23] LABS: ALBUMIN 2.1 g/dL (3.4-5.0); ANION GAP 10.3 (8-16); CARBON DIOXIDE 25.4 mmol/L (21-32); CREATININE 0.8 mg/dL (0.6-1.3); POTASSIUM 3.7 mmol/L (3.5-5.1); TOTAL BILIRUBIN 8.3 mg/dL (0.0-1.0)
[2020-10-07 07:20] LABS: EOSINOPHILS % (MANUAL) 5 % (0-4); LYMPHOCYTES % (MANUAL) 12 % (20-46); MONOCYTES % (MANUAL) 8 % (5-12)
--- NOTE | 2020-10-07 07:40 | NUR ---
ENDORSED - PT - STABLE . I ENDORSED TO NURSE HWANG - PT HAS NO CONSENT YET FOR COLONOSCOPY - I ENDORSED TO JAIDEN THE ESTATE ATTORNEY AND CONTACT NUMBER OF PT'S RELATIVE . Addendum: 10/07/20 at 0746 by Concha Troy RN I ENDORSED TO JAIDEN I RELAYED THE RESULT OF EKG TO DR. LLANES - SHE HAVE TO FF UP IF THERE IS FURTHER ORDER FROM DR. LLANES . PER CHARGE TORSTEN NO NEED PT' FOR CXR - LAST CXR IS 10/01/20 - ENDORSED .
--- NOTE | 2020-10-07 08:07 | NUR ---
RECEIVED REPORT FORM REGISTERED ROUTE ASSOCIATE NURSE. PATIENT ALERT AND ORIENTED X 4. PATIENT IS AWAKE AT BED RESPIRATION EVEN AND UNLABORED AT ROOM AIR. IV SITE RAC 20 G PT IS NPO EXCEPT MED. BED IN LOWER POSITION. CALL LIGHT WITHIN REACH. PT IS STABLE AT THIS TIME.WILL CONTINUE TO MONITOR PATIENT
[2020-10-07] MEDS ORDERED: PROP20TA29 PO (08:33)
[2020-10-07] MEDS ORDERED: PANT40EC PO (08:33)
[2020-10-07] MEDS: PROPRANOLOL 20 MG TAB PO SCH ×3 (09:00→12:14)
[2020-10-07] MEDS: POTASSIUM CHLORIDE 20% 40 MEQ/15 ML UDC GT SCH (09:10)
[2020-10-07] MEDS: LACTULOSE 20 GM/30 ML UDC PO SCH ×2 (09:11→12:13)
[2020-10-07] MEDS: POLYETHYLENE GLYCOL 17 GM/PKT PO SCH ×2 (09:11→12:13)
--- NOTE | 2020-10-07 09:11 | NUR ---
PT WAS GIVEN THE SCHEDULED AM MEDICATIONS NOW, BP MED WAS HELD DUE TO BP IS 104/75, WILL MONITOR PT.
[2020-10-07] MEDS: PANTOPRAZOLE 40 MG INJ VIAL IVP SCH (09:13)
--- NOTE | 2020-10-07 11:55 | NUR ---
PT IS OFF THE UNIT FOR A COLONOSCOPY.
--- NOTE | 2020-10-07 12:13 | NUR ---
PT WAS GIVEN THER SCHEDULED MEDICATIONS NOW, WILL MONITOR PT.
[2020-10-07] MEDS ORDERED: diphenhydrAMINE 50 MG/ML VIAL ONE (13:08)
[2020-10-07] MEDS ORDERED: fentaNYL citrate 0.05 MG/ML VIAL ONE (13:08)
[2020-10-07] MEDS ORDERED: MIDAZOLAM 5 MG/5 ML VIAL ONE (13:08)
[2020-10-07] MEDS: MIDAZOLAM 2 MG/2 ML VIAL IVP ONE ×2 (13:12→14:15)
[2020-10-07] MEDS ORDERED: FENTANYL C 0.1 MG/HR PATCH TD SCH (13:40)
[2020-10-07] MEDS ORDERED: SPIRONOLACTONE 50 MG TAB PO SCH (13:45)
[2020-10-07] MEDS ORDERED: FUROSEMIDE 20 MG TAB PO SCH (13:45)
--- NOTE | 2020-10-07 13:50 | NUR ---
PT IS BACK TO THE UNIT FOR A COLONOSCOPY @1350. VITAL SIGNS TAKEN WITHIN NORMAL LIMIT . PATIENT IS IN STABLE CONDITION RIGHT NOW WILL CONTINUE TO MONITOR PATIENT .
[2020-10-07] MEDS ORDERED: fentaNYL citrate 0.05 MG/ML VIAL IVP ONE (14:35)
[2020-10-07] MEDS ORDERED: FERROUS SULFATE 325 MG TABEC PO SCH (17:00)
--- NOTE | 2020-10-07 17:05 | NUR ---
DISCHARGED PT TO HOME ACCOMPANIED BY DAUGHTER, LYLE, TEACHINGS AND INSTRUCTIONS GIVEN TO PT, WITH DAUGHTER ON THE SIDE, AND VERBALIZED UNDERSTANDING, IV LINE AND ARM BAND REMOVED AND PT IS STABLE AT THIS TIME.
[2020-10-07] MEDS ORDERED: LACTULOSE 20 GM/30 ML UDC PO SCH (21:00)
[2020-10-08] MEDS ORDERED: LANSOPRAZOLE 30 MG CAPDR PO SCH (06:30)
[2020-10-08] MEDS ORDERED: SPIRONOLACTONE 50 MG TAB PO SCH (09:00)
[2020-10-08] MEDS ORDERED: FUROSEMIDE 20 MG TAB PO SCH (09:00)
[2020-10-09] MEDS ORDERED: DOCU-299 PO (01:43)
== END 2020-10-07 17:20 | disposition home or self-care (01) | DRG 254 ==
LOC: MTU 20:06
PROVIDERS: ADMIT Hospitalist; ATTEND Hospitalist
PROC: 0DJD8ZZ Inspection of Lower Intestinal Tract, Via Natural or Artificial Opening Endoscopic (ICD-10-PCS; principal; 2020-10-07 12:45)
DX: K64.8 Other hemorrhoids (principal); D68.9 Coagulation defect, unspecified; D69.6 Thrombocytopenia, unspecified; E46 Unspecified protein-calorie malnutrition; D50.9 Iron deficiency anemia, unspecified; K72.90 Hepatic failure, unspecified without coma; K70.30 Alcoholic cirrhosis of liver without ascites; K57.30 Diverticulosis of large intestine without perforation or abscess without bleeding; K62.89 Other specified diseases of anus and rectum; Z68.27 Body mass index [BMI] 27.0-27.9, adult
CPT/HCPCS: 36415; 80048; 80053; 82140; 85025; 85610; 87081; C9113; J1200; J2250; J2270; J3010; J7030